=== PATIENT | female | born 1975 | race Caucasian/White ===

== ENCOUNTER 2018-01-26 21:17 | Emergency (ER) | payer MEDICAID ==
[2018-01-27] MEDS: FAMOTIDINE 20 MG TAB PO (01:25)
[2018-01-27] MEDS: DIPHENHYDRAMINE 50 MG INJ IM (01:25)
== END 2018-01-27 01:49 | disposition home or self-care (01) ==
LOC: FTE 21:17
DX: S40.862A Insect bite (nonvenomous) of left upper arm, initial encounter (principal); I10 Essential (primary) hypertension; W57.XXXA Bitten or stung by nonvenomous insect and other nonvenomous arthropods, initial encounter; Y92.9 Unspecified place or not applicable
CPT/HCPCS: 96372; 99284-25; J1200

== ENCOUNTER 2018-02-01 12:40 | Emergency (ER) | payer MEDICAID | END 2018-02-01 12:54 | disposition home or self-care (01) | LOC: E/R 12:40 | DX: B02.9 Zoster without complications (principal); S40.869A Insect bite (nonvenomous) of unspecified upper arm, initial encounter; I10 Essential (primary) hypertension; W57.XXXA Bitten or stung by nonvenomous insect and other nonvenomous arthropods, initial encounter; Y92.9 Unspecified place or not applicable | CPT/HCPCS: 99283; Z7502 ==